=== PATIENT | female | born 2000 | race Caucasian/White ===

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

== ENCOUNTER 2020-10-13 15:34 | Emergency (ER) | payer BC ==
[2020-10-13 15:43] VITALS: RESP 18; TEMP 98.2
[2020-10-13] MEDS ORDERED: IBUPROFEN 600 MG TAB PO STA (16:14)
[2020-10-13 16:30] LABS: Amorphous Sediment,Urine Rare /hpf; Appearance,Urine Cloudy (Clear); Bacteria,Urine Rare /hpf; Bilirubin,Urine Negative (Negative); Blood,Urine Large (Negative); Color,Urine Yellow; Glucose,Urine (UA) Negative (Negative); Hyaline Casts,Urine 1 /lpf (0-2); Ketones,Urine Negative (Negative); Leukocyte Esterase,Urine Large (Negative); Mucus,Urine Few /hpf; Nitrite,Urine Negative (Negative); Protein,Urine Negative (Negative); RBC,Urine 6 /hpf (0-5); Specific Gravity,Urine 1.028 (1.001-1.035); Squamous Epithelial Cell,Urine 4 /hpf (0-4); WBC,Urine 42 /hpf (0-5)
--- NOTE | 2020-10-13 16:31 | ED ---
Abdominal Pain HPI - General Chief Complaint: Abdominal Pain Stated Complaint: Abd/Pelvic Pain Time Seen by Provider: 10/13/20 15:48 Source: patient, RN notes reviewed Mode of arrival: ambulatory Limitations: no limitations - History of Present Illness Initial Comments: 20-year-old female presents emergency Department chief complaint of left lower abdominal pain. Patient states has been off for last few days. Patient states that she is concerned about ovarian cyst. No dysuria no hematuria she states she just ended her mental cycle denies any chance . Patient states that she has no dysuria no hematuria denies any significant constipation or diarrhea no prior abdominal surgeries no chest pain or shortness breath no flank or back pain. - Related Data Home Medications Medication Instructions Recorded Confirmed Acetaminophen Tab [Tylenol Tab] 1,000 mg PO Q6HR PRN 10/13/20 10/13/20 Citalopram Hydrobromide [CeleXA] 40 mg PO DAILY 10/13/20 10/13/20 Previous Rx's Medication Instructions Recorded Cephalexin [Keflex] 500 mg PO Q8HR #21 cap 10/13/20 Allergies Allergy/AdvReac Type Severity Reaction Status Date / Time No Known Allergies Allergy Verified 10/13/20 16:33 Review of Systems ROS Statement: Those systems with pertinent positive or pertinent negative responses have been documented in the HPI. ROS Other: All systems not noted in ROS Statement are negative. Past Medical History Additional Past Medical History / Comment(s): hx of palpitations History of Any Multi-Drug Resistant Organisms: None Reported Past Surgical History: Ear Surgery Additional Past Surgical History / Comment(s): tubes in ears as infant Past Psychological History: Anxiety Past Alcohol Use History: None Reported Past Drug Use History: None Reported General Exam Limitations: no limitations General appearance: alert, in no apparent distress Head exam: Present: atraumatic, normocephalic, normal inspection Eye exam: Present: normal appearance, PERRL, EOMI. Absent: scleral icterus, conjunctival injection, periorbital swelling Respiratory exam: Present: normal lung sounds bilaterally. Absent: respiratory distress, wheezes, rales, rhonchi, stridor Cardiovascular Exam: Present: regular rate, normal rhythm, normal heart sounds. Absent: systolic murmur, diastolic murmur, rubs, gallop, clicks GI/Abdominal exam: Present: soft, tenderness (Minimal left lower quadrant), normal bowel sounds. Absent: distended, guarding, rebound, rigid Back exam: Absent: CVA tenderness (R), CVA tenderness (L) Neurological exam: Present: alert, oriented X3 Skin exam: Present: warm, dry, intact, normal color. Absent: rash Course Vital Signs 10/13/20 10/13/20 15:42 16:56 Temperature 98.2 F Pulse Rate 76 77 Respiratory 18 18 Rate Blood Pressure 138/83 105/72 O2 Sat by Pulse 98 99 Oximetry Medical Decision Making - Medical Decision Making Ultrasound was unremarkable., Urinalysis shows evidence urinary tract infection. Patient was started on oral antibiotics. Return parameters were discussed. - Lab Data Lab Results 10/13/20 10/13/20 Range/Units 16:23 16:23 Urine Color Yellow Urine Appearance Cloudy H (Clear) Urine pH 6.0 (5.0-8.0) Ur Specific [place] 1.028 (1.001-1.035) Urine Protein Negative (Negative) Urine Glucose (UA) Negative (Negative) Urine Ketones Negative (Negative) Urine Blood Large H (Negative) Urine Nitrite Negative (Negative) Urine Bilirubin Negative (Negative) Urine Urobilinogen 2.0 (<2.0) mg/dL Ur Leukocyte Esterase Large H (Negative) Urine RBC 6 H (0-5) /hpf Urine WBC 42 H (0-5) /hpf Ur Squamous Epith Cells 4 (0-4) /hpf Amorphous Sediment Rare H (None) /hpf Urine Bacteria Rare H (None) /hpf Hyaline Casts 1 (0-2) /lpf Urine Mucus Few H (None) /hpf Urine HCG, Qual Not Detected (Not Detectd) Disposition Clinical Impression: UTI (urinary tract infection) Disposition: HOME SELF-CARE Condition: Stable Instructions (If sedation given, give patient instructions): Urinary Tract Infection in Women (ED) Additional Instructions: Please return to the Emergency Department if symptoms worsen or any other concerns. Prescriptions: Cephalexin [Keflex] 500 mg PO Q8HR #21 cap Is patient prescribed a controlled substance at d/c from ED?: No Referrals: Alan Knapp DO [Primary Care Provider] - 1-2 days Time of Disposition: 17:03
--- NOTE | 2020-10-13 16:55 | US ---
EXAMINATION TYPE: US transvaginal DATE OF EXAM: 10/13/2020 COMPARISON: NONE CLINICAL HISTORY: pain. Left pelvic pain x couple days, irregular cycles for the past couple months, 0 TECHNIQUE: Transvaginal ER exam. Date of LMP: 10/09/2020 EXAM MEASUREMENTS: Uterus: 7.3 x 3.3 x 4.1 cm Endometrial Stripe: 0.3 cm Right Ovary: 4.4 x 3.1 x 2.2 cm Left Ovary: 3.1 x 2.3 x 3.1 cm 1. Uterus: anteverted 2. Endometrium: wnl 3. Right Ovary: multiple follicles 4. Left Ovary: multiple follicles Spectral, color and waveform doppler imaging shows good arterial and venous flow within the ovaries ; there is no evidence for ovarian torsion. 5. Bilateral Adnexa: wnl 6. Posterior cul-de-sac: wnl IMPRESSION: 1. Normal pelvic ultrasound
[2020-10-13 16:57] VITALS: BP 105/72; PULSE 77
== END 2020-10-13 17:27 | disposition home or self-care (01) ==
LOC: EC 15:34
DX: N39.0 Urinary tract infection, site not specified (principal); F41.9 Anxiety disorder, unspecified; Z79.899 Other long term (current) drug therapy
CPT/HCPCS: 76830; 81001; 81025; 87086; 93975; 99284

== ENCOUNTER → 2020-10-20 | Outpatient (CLI) | payer BC ==
--- NOTE | 2020-10-21 10:49 | XR ---
EXAMINATION TYPE: XR abdomen 2V DATE OF EXAM: 10/20/2020 COMPARISON: None INDICATION: Pain TECHNIQUE: 2 view abdomen supine view and upright view FINDINGS: There is a normal bowel gas pattern. Psoas margins are normal. No organomegaly is present. No air-fluid levels are evident. No suspicious air-fluid levels are present. No free air is present. IMPRESSION: 1. Unremarkable Abdomen
== END | disposition home or self-care (01) ==
LOC: RAD 16:33
PROVIDERS: ATTEND Nurse Practitioner Family
DX: R10.9 Unspecified abdominal pain (principal)
CPT/HCPCS: 74019

== ENCOUNTER 2021-05-18 14:25 | Emergency (ER) | payer BC ==
[2021-05-18 14:32] VITALS: BP 120/76; PULSE 92; RESP 18; TEMP 98.2
[2021-05-18] MEDS ORDERED: ACETAMINOPHEN TAB 500 MG TAB PO STA (15:23)
--- NOTE | 2021-05-18 15:27 | ED ---
Extremity Problem HPI - General Chief complaint: Extremity Problem,Nontraumatic Stated complaint: L Leg Swelling Time Seen by Provider: 05/18/21 14:42 Source: patient Mode of arrival: ambulatory Limitations: no limitations - History of Present Illness Initial comments: 21-year-old male presents to emergency department with a chief complaint left ankle swelling and pain. Patient reports about one week ago she woke up with left-sided ankle pain that seems to be exacerbated with inhalation. She denies any direct injuries. States now the pain has started to progress proximally towards the knee. She also reports calf tenderness is well-appearing reports unilateral leg swelling. Denies any chest pain shortness of breath. No history DVT or PE. She is currently on oral contraceptive. - Related Data Home Medications Medication Instructions Recorded Confirmed Acetaminophen Tab [Tylenol Tab] 1,000 mg PO Q6HR PRN 10/13/20 10/13/20 Citalopram Hydrobromide [CeleXA] 40 mg PO DAILY 10/13/20 10/13/20 Previous Rx's Medication Instructions Recorded Cephalexin [Keflex] 500 mg PO Q8HR #21 cap 10/13/20 Allergies Allergy/AdvReac Type Severity Reaction Status Date / Time No Known Allergies Allergy Verified 05/18/21 14:32 Review of Systems ROS Statement: Those systems with pertinent positive or pertinent negative responses have been documented in the HPI. ROS Other: All systems not noted in ROS Statement are negative. Past Medical History Additional Past Medical History / Comment(s): hx of palpitations History of Any Multi-Drug Resistant Organisms: None Reported Past Surgical History: Ear Surgery Additional Past Surgical History / Comment(s): tubes in ears as infant Past Psychological History: Anxiety, Depression Smoking Status: Never smoker Past Alcohol Use History: None Reported Past Drug Use History: None Reported General Exam Limitations: no limitations General appearance: alert, in no apparent distress, obese Head exam: Present: atraumatic, normocephalic, normal inspection Eye exam: Present: normal appearance, PERRL, EOMI Pupils: Present: normal accommodation ENT exam: Present: normal exam, normal oropharynx, mucous membranes moist Neck exam: Present: normal inspection, full ROM. Absent: tenderness, lymphadenopathy Respiratory exam: Present: normal lung sounds bilaterally. Absent: respiratory distress, wheezes, rales Cardiovascular Exam: Present: regular rate, normal rhythm, normal heart sounds. Absent: systolic murmur Extremities exam: Present: full ROM, tenderness (Left ankle tenderness), normal capillary refill, pedal edema (+1 nonpitting left lower extremity), joint swelling (Left ankle), calf tenderness, other (Palpable DP and PT bilaterally). Absent: normal inspection (Unilateral left leg swelling) Back exam: Present: normal inspection, full ROM. Absent: tenderness, CVA tenderness (R), CVA tenderness (L) Neurological exam: Present: alert, oriented X3 Psychiatric exam: Present: normal affect, normal mood Skin exam: Present: warm, dry, intact, normal color Course Vital Signs 05/18/21 14:29 Temperature 98.2 F Pulse Rate 92 Respiratory 18 Rate Blood Pressure 120/76 O2 Sat by Pulse 99 Oximetry Medical Decision Making - Medical Decision Making 21-year-old male presents to emergency department with a chief complaint left ankle swelling and pain. On physical examination, left ankle swelling with Tenderness. X-ray shows no acute findings of the left ankle but there is soft tissue swelling. Possible ligamentous injury. Ultrasound Doppler shows no signs of a DVT. Patient advised to follow-up with accreditation specialist. Strict return parameters were thoroughly discussed the patient is ascending agreeable. Case discussed with physician. Disposition Clinical Impression: Left ankle swelling Disposition: HOME SELF-CARE Condition: Stable Instructions (If sedation given, give patient instructions): Swollen Ankle Joint (ED) Additional Instructions: Please return to the Emergency Department if symptoms worsen or any other concerns. Follow with an accreditation specialist. Is patient prescribed a controlled substance at d/c from ED?: No Referrals: Gerardo Arevalo DO [Primary Care Provider] - 1-2 days Luigi Sarmiento DO [Doctor of Osteopathic Medicine] - 1-2 days Time of Disposition: 16:34
--- NOTE | 2021-05-18 15:58 | XR ---
EXAMINATION TYPE: XR ankle complete LT DATE OF EXAM: 05/18/2021 CLINICAL HISTORY: Ankle swelling TECHNIQUE: Frontal, lateral and oblique images of the left ankle are obtained. COMPARISON: None. FINDINGS: There is no acute fracture/dislocation evident in the left ankle. The ankle mortise appea rs within normal limits. Soft tissue swelling. IMPRESSION: There is no acute fracture or dislocation in the left ankle. Overlying soft tissue swell ing may represent underlying ligamentous injury.
--- NOTE | 2021-05-18 16:16 | US ---
EXAMINATION TYPE: US venous doppler duplex LE LT DATE OF EXAM: 05/18/2021 4:06 PM COMPARISON: NONE CLINICAL HISTORY: r/o dvt. 21 year old with left leg pain and swelling/ No known prior DVT SIDE PERFORMED: Left TECHNIQUE: The lower extremity deep venous system is examined utilizing real time linear array sonog renae with graded compression, doppler sonography and color-flow sonography. VESSELS IMAGED: Common Femoral Vein Deep Femoral Vein Greater Saphenous Vein * Femoral Vein Popliteal Vein Small Saphenous Vein * Proximal Calf Veins (* superficial vessels) Left Leg: Negative for DVT Grayscale, color doppler, spectral doppler imaging performed of the deep veins of the left lower extr emity. There is normal flow, compressibility, vascular waveforms. IMPRESSION: No ultrasound evidence for acute DVT in the left lower extremity.
== END 2021-05-18 16:37 | disposition home or self-care (01) ==
LOC: EC 14:25
DX: M79.89 Other specified soft tissue disorders (principal); F32.9 Major depressive disorder, single episode, unspecified
CPT/HCPCS: 99284

== ENCOUNTER 2021-07-14 08:26 | Emergency (ER) | payer BC ==
[2021-07-14 08:34] VITALS: RESP 18; TEMP 98.3
[2021-07-14] MEDS ORDERED: KETOROLAC 15 MG/ML 1 ML VIAL IVP STA (09:22)
--- NOTE | 2021-07-14 09:27 | ED ---
General Adult HPI - General Chief complaint: Abdominal Pain Stated complaint: left side abd pain Time Seen by Provider: 07/14/21 08:55 Source: patient, RN notes reviewed Mode of arrival: ambulatory Limitations: no limitations - History of Present Illness Initial comments: 21-year-old female presents to the emergency room for a chief complaint of abdominal pain. Patient states this morning she had a pressure in her lower abdomen. She thought she had to go to the bathroom but it did not help. Patient states it started on the left side been moving across to the right side. States it is also higher up on the left-sided in her back. Denies any upper right-sided abdominal pain. Denies nausea vomiting diarrhea. Denies fevers or chills.Patient has no other complaints at this time including shortness of breath, chest pain, abdominal pain, nausea or vomiting, headache, or visual changes. - Related Data Home Medications Medication Instructions Recorded Confirmed Citalopram Hydrobromide [CeleXA] 40 mg PO DAILY 10/13/20 07/14/21 Acetaminophen Tab [Tylenol] 975 mg PO Q4H PRN 07/14/21 07/14/21 Blisovi 1 tab PO DAILY 07/14/21 07/14/21 buPROPion XL [Wellbutrin XL] 300 mg PO DAILY 07/14/21 07/14/21 Previous Rx's Medication Instructions Recorded Dicyclomine [Bentyl] 20 mg PO TID PRN #20 tablet 07/14/21 Allergies Allergy/AdvReac Type Severity Reaction Status Date / Time No Known Allergies Allergy Verified 07/14/21 09:40 Review of Systems ROS Statement: Those systems with pertinent positive or pertinent negative responses have been documented in the HPI. ROS Other: All systems not noted in ROS Statement are negative. Past Medical History Additional Past Medical History / Comment(s): hx of palpitations History of Any Multi-Drug Resistant Organisms: None Reported Past Surgical History: Ear Surgery Additional Past Surgical History / Comment(s): tubes in ears as Past Psychological History: Anxiety, Depression Smoking Status: Never smoker Past Alcohol Use History: None Reported Past Drug Use History: None Reported General Exam Limitations: no limitations General appearance: alert, in no apparent distress Head exam: Present: atraumatic Eye exam: Present: normal appearance, PERRL, EOMI. Absent: scleral icterus, con junctival injection ENT exam: Present: normal exam, mucous membranes moist Neck exam: Present: normal inspection, full ROM. Absent: tenderness Respiratory exam: Present: normal lung sounds bilaterally. Absent: respiratory distress, wheezes Cardiovascular Exam: Present: regular rate, normal rhythm, normal heart sounds GI/Abdominal exam: Present: soft, tenderness (Tenderness in the left upper quadrant, no right upper quadrant tenderness, negative Muñoz sign), normal bow el sounds. Absent: distended Neurological exam: Present: alert Course Vital Signs 07/14/21 07/14/21 08:31 10:48 Temperature 98.3 F 98.3 F Pulse Rate 78 84 Respiratory 18 18 Rate Blood Pressure 117/73 116/79 O2 Sat by Pulse 97 100 Oximetry Medical Decision Making - Medical Decision Making Vitals are stable. CBC CMP unremarkable. Urinalysis is negative. HCG is negative. CT shows mild fluid distention of the small bowel which may reflect ileus. No evidence of obstruction. Patient was given pain medication and did have significant department. Can be discharged home to follow up with primary care. Start return parameters. - Lab Data Result diagrams: 07/14/21 09:29 07/14/21 09:29 Lab Results 07/14/21 07/14/21 07/14/21 Range/Units 09:08 09:08 09:29 WBC 8.1 (3.8-10.6) k/uL RBC 4.43 (3.80-5.40) m/uL Hgb 14.2 (11.4-16.0) gm/dL Hct 40.4 (34.0-46.0) % MCV 91.4 (80.0-100.0) fL MCH 32.1 (25.0-35.0) pg MCHC 35.1 (31.0-37.0) g/dL RDW 12.4 (11.5-15.5) % Plt Count 322 (150-450) k/uL MPV 7.3 Neutrophils % 60 % Lymphocytes % 30 % Monocytes % 5 % Eosinophils % 2 % Basophils % 1 % Neutrophils # 4.9 (1.3-7.7) k/uL Lymphocytes # 2.5 (1.0-4.8) k/uL Monocytes # 0.4 (0-1.0) k/uL Eosinophils # 0.1 (0-0.7) k/uL Basophils # 0.1 (0-0.2) k/uL Sodium (137-145) mmol/L Potassium (3.5-5.1) mmol/L Chloride (98-107) mmol/L Carbon Dioxide (22-30) mmol/L Anion Gap mmol/L BUN (7-17) mg/dL Creatinine (0.52-1.04) mg/dL Est GFR (CKD-EPI)AfAm (>60 ml/min/1.73 sqM) Est GFR (CKD-EPI)NonAf (>60 ml/min/1.73 sqM) Glucose (74-99) mg/dL Calcium (8.4-10.2) mg/dL Total Bilirubin (0.2-1.3) mg/dL AST (14-36) U/L ALT (4-34) U/L Alkaline Phosphatase (38-126) U/L Total Protein (6.3-8.2) g/dL Albumin (3.5-5.0) g/dL Lipase (23-300) U/L Urine Color Yellow Urine Appearance Cloudy H (Clear) Urine pH 5.5 (5.0-8.0) Ur Specific Oneill 1.025 (1.001-1.035) Urine Protein Negative (Negative) Urine Glucose (UA) Negative (Negative) Urine Ketones Negative (Negative) Urine Blood Negative (Negative) Urine Nitrite Negative (Negative) Urine Bilirubin Negative (Negative) Urine Urobilinogen <2.0 (<2.0) mg/dL Ur Leukocyte Esterase Large H (Negative) Urine RBC 2 (0-5) /hpf Urine WBC 4 (0-5) /hpf Ur Squamous Epith Cells 5 H (0-4) /hpf Urine HCG, Qual Not Detected (Not Detectd) 07/14/21 Range/Units 09:29 WBC (3.8-10.6) k/uL RBC (3.80-5.40) m/uL Hgb (11.4-16.0) gm/dL Hct (34.0-46.0) % MCV (80.0-100.0) fL MCH (25.0-35.0) pg MCHC (31.0-37.0) g/dL RDW (11.5-15.5) % Plt Count (150-450) k/uL MPV Neutrophils % % Lymphocytes % % Monocytes % % Eosinophils % % Basophils % % Neutrophils # (1.3-7.7) k/uL Lymphocytes # (1.0-4.8) k/uL Monocytes # (0-1.0) k/uL Eosinophils # (0-0.7) k/uL Basophils # (0-0.2) k/uL Sodium 138 (137-145) mmol/L Potassium 4.4 (3.5-5.1) mmol/L Chloride 108 H (98-107) mmol/L Carbon Dioxide 20 L (22-30) mmol/L Anion Gap 10 mmol/L BUN 13 (7-17) mg/dL Creatinine 0.70 (0.52-1.04) mg/dL Est GFR (CKD-EPI)AfAm >90 (>60 ml/min/1.73 sqM) Est GFR (CKD-EPI)NonAf >90 (>60 ml/min/1.73 sqM) Glucose 95 (74-99) mg/dL Calcium 9.5 (8.4-10.2) mg/dL Total Bilirubin 0.5 (0.2-1.3) mg/dL AST 29 (14-36) U/L ALT 20 (4-34) U/L Alkaline Phosphatase 57 (38-126) U/L Total Protein 7.3 (6.3-8.2) g/dL Albumin 4.4 (3.5-5.0) g/dL Lipase 68 (23-300) U/L Urine Color Urine Appearance (Clear) Urine pH (5.0-8.0) Ur Specific Oneill (1.001-1.035) Urine Protein (Negative) Urine Glucose (UA) (Negative) Urine Ketones (Negative) Urine Blood (Negative) Urine Nitrite (Negative) Urine Bilirubin (Negative) Urine Urobilinogen (<2.0) mg/dL Ur Leukocyte Esterase (Negative) Urine RBC (0-5) /hpf Urine WBC (0-5) /hpf Ur Squamous Epith Cells (0-4) /hpf Urine HCG, Qual (Not Detectd) Disposition Clinical Impression: Ileus, Abdominal pain Disposition: HOME SELF-CARE Condition: Good Instructions (If sedation given, give patient instructions): Abdominal Pain (ED) Additional Instructions: Please take Motrin and Tylenol for pain. Follow-up with your doctor in one to 2 days. Return to the emergency room for any worsening symptoms. Prescriptions: Dicyclomine [Bentyl] 20 mg PO TID PRN #20 tablet PRN Reason: abdominal pain Is patient prescribed a controlled substance at d/c from ED?: No Referrals: Gerardo Arevalo DO [Primary Care Provider] - 1-2 days Time of Disposition: 11:09
[2021-07-14 09:30] LABS: Appearance,Urine Cloudy (Clear); Bilirubin,Urine Negative (Negative); Blood,Urine Negative (Negative); Color,Urine Yellow; Glucose,Urine (UA) Negative (Negative); Ketones,Urine Negative (Negative); Leukocyte Esterase,Urine Large (Negative); Nitrite,Urine Negative (Negative); PH, Urine 5.5 (5.0-8.0); Protein,Urine Negative (Negative); RBC,Urine 2 /hpf (0-5); Specific Gravity,Urine 1.025 (1.001-1.035); Squamous Epithelial Cell,Urine 5 /hpf (0-4); Urobilinogen,Urine <2.0 mg/dL (<2.0); WBC,Urine 4 /hpf (0-5)
[2021-07-14 09:37] LABS: Basophils # (A) 0.1 k/uL (0-0.2); Basophils % (A) 1 %; Eosinophils # (A) 0.1 k/uL (0-0.7); Eosinophils % (A) 2 %; HCT 40.4 % (34.0-46.0); HGB 14.2 gm/dL (11.4-16.0); Lymphocytes # (A) 2.5 k/uL (1.0-4.8); Lymphocytes % (A) 30 %; MCH 32.1 pg (25.0-35.0); MCHC 35.1 g/dL (31.0-37.0); MCV 91.4 fL (80.0-100.0); Mean Platelet Volume 7.3; Monocytes # (A) 0.4 k/uL (0-1.0); Monocytes % (A) 5 %; Neutrophils # (A) 4.9 k/uL (1.3-7.7); Neutrophils % (A) 60 %; Platelet Count 322 k/uL (150-450); RBC 4.43 m/uL (3.80-5.40); RDW 12.4 % (11.5-15.5); WBC 8.1 k/uL (3.8-10.6)
[2021-07-14 09:59] LABS: ALT 20 U/L (4-34); AST 29 U/L (14-36); African American GFR (CKD) >90 (>60 ml/min/1.73 sqM); Albumin 4.4 g/dL (3.5-5.0); Alkaline Phosphatase 57 U/L (38-126); Anion Gap 10 mmol/L; Blood Urea Nitrogen 13 mg/dL (7-17); Calcium 9.5 mg/dL (8.4-10.2); Carbon Dioxide 20 mmol/L (22-30); Chloride 108 mmol/L (98-107); Glucose 95 mg/dL (74-99); Lipase 68 U/L (23-300); Non-African American GFR(CKD) >90 (>60 ml/min/1.73 sqM); Potassium 4.4 mmol/L (3.5-5.1); Sodium 138 mmol/L (137-145); Total Bilirubin 0.5 mg/dL (0.2-1.3); Total Protein 7.3 g/dL (6.3-8.2)
--- NOTE | 2021-07-14 10:17 | CT ---
EXAMINATION TYPE: CT abdomen pelvis w con DATE OF EXAM: 07/14/2021 COMPARISON: None HISTORY: Lt sided pain CT DLP: 2045.9 mGycm CONTRAST: CT scan of the abdomen and pelvis is performed without Oral Contrast and with IV Contrast, patient in jected with 100 mL of Isovue 300. FINDINGS: LUNG BASES-: No visible nodule. No infiltrate. LIVER/GB: No calcified gallstones. No space occupying hepatic lesion. Biliary tree is of normal ca liber. PANCREAS: No inflammation. No distinct mass. SPLEEN: No splenic enlargement. No lesion seen. ADRENALS: No nodule. No thickening. KIDNEYS/BLADDER: No hydronephrosis. No nephrolithiasis. No distinct renal mass. Urinary bladder g rossly unremarkable. BOWEL: Normal appendix. Mild fluid distended small bowel may reflect ileus. No evidence of bowel obst ruction. No free air or abscess. GENITAL ORGANS: No gross abnormality. LYMPH NODES: No greater than 1cm abdominal or pelvic lymph nodes are appreciated. AORTA: No significant abnormality. OSSEOUS STRUCTURES: No significant abnormality is seen. OTHER: No significant additional abnormality is seen. IMPRESSION: 1. Mild fluid distended small bowel may reflect ileus. No evidence of bowel obstruction.
[2021-07-14 10:50] VITALS: BP 116/79; PULSE 84
== END 2021-07-14 11:19 | disposition home or self-care (01) ==
LOC: EC 08:26
DX: K56.7 Ileus, unspecified (principal); F41.9 Anxiety disorder, unspecified; F32.9 Major depressive disorder, single episode, unspecified
CPT/HCPCS: 36415; 80053; 83690; 85025; 81001; 81025; 74177; 99284; 96374; J1885; Q9967

== ENCOUNTER → 2022-08-05 | Outpatient (CLI) | payer BC ==
--- NOTE | 2022-08-05 22:32 | MR ---
EXAMINATION TYPE: MR brain wo con DATE OF EXAM: 08/05/2022 COMPARISON: NONE at this institution. HISTORY: Possible Chiari malformation, dizziness, abnormal CT. TECHNIQUE: Multiplanar, multisequence imaging of the brain and brainstem is performed without IV cont rast. FINDINGS: Diffusion weighted images demonstrate no evidence of a recent infarct or other diffusion abnormality. There is no extraaxial fluid collection or significant white matter signal abnormality. The ventricu lar system and cisternal spaces are normal in size and appearance. The brain volume is age appropria te. Midline structures demonstrate normal morphology. The craniocervical junction appears within normal limits. Normal vascular flow voids are present. Incidental dominant right vertebral artery filling th e basilar artery. The visualized sinuses are clear and the globes are intact. IMPRESSION: No low-lying cerebellar tonsils into foramen magnum to suggest Chiari type I malformation . Unremarkable study.
== END | disposition home or self-care (01) ==
LOC: RADMRIMAIN 15:50
PROVIDERS: ATTEND Family Medicine
DX: Q07.00 Arnold-Chiari syndrome without spina bifida or hydrocephalus (principal)
CPT/HCPCS: 70551

== ENCOUNTER → 2023-06-23 | Outpatient (CLI) | payer OTHER ==
--- NOTE | 2023-06-23 10:57 | XR ---
EXAMINATION TYPE: XR foot complete RT DATE OF EXAM: 06/23/2023 10:13 AM INDICATION: Patient age:Female; 23 years old; Reason for study: S99.921A UNSPECIFIED INJURY OF RIGHT FOOT; [facility]. COMPARISON: Right foot radiograph 04/20/2012 TECHNIQUE: The right foot was examined in the AP, oblique, and lateral projections. FINDINGS: No evidence of any acute osseous pathology. No evidence of soft tissue swelling. Joints are preserve d. Incidental note is made of symphalangism of the fifth distal interphalangeal joint. IMPRESSION: No evidence of acute fracture.
== END | disposition home or self-care (01) ==
LOC: RADUSWWP 09:19
PROVIDERS: ATTEND Internal Medicine
DX: S99.921A Unspecified injury of right foot, initial encounter (principal)

== ENCOUNTER 2023-11-08 22:27 | Emergency (ER) | payer OTHER ==
--- NOTE | 2023-11-08 22:31 | ED ---
General Adult HPI - General Source: patient, RN notes reviewed Mode of arrival: ambulatory Limitations: no limitations <Singh Smiley - Last Filed: 11/08/23 22:30> - General Source: patient, RN notes reviewed Mode of arrival: ambulatory Limitations: no limitations <Patricia Garza - Last Filed: 11/09/23 04:33> - General Chief complaint: Neck Pain/Injury Stated complaint: neck pain follow up from urgent care Time Seen by Provider: 11/08/23 22:30 - History of Present Illness Initial comments: 23-year-old female presents emergency Department with chief complaint of neck pain. Patient states she cracked her neck and head pain she went to urgent care who then called her back stating that she had an abnormal x-ray. She states she has pain in his cervical spine. No other associated injuries (Singh Smiley) This is a 23-year-old female who presents to the emergency department for neck pain. Patient states that she was stretching and cracked her neck, and started to develop pain. She went to urgent care where she had x-rays taken. They called her afterwards and told her that the x-ray appeared abnormal and she should go to the emergency department for further evaluation. She does continue to have pain in the back of her neck. She has not taken anything for management of the pain. Denies any other injuries. (Patricia Garza) - Related Data Home Medications Medication Instructions Recorded Confirmed Citalopram Hydrobromide [CeleXA] 40 mg PO DAILY 10/13/20 07/14/21 Acetaminophen Tab [Tylenol] 975 mg PO Q4H PRN 07/14/21 07/14/21 Blisovi 1 tab PO DAILY 07/14/21 07/14/21 buPROPion XL [Wellbutrin XL] 300 mg PO DAILY 07/14/21 07/14/21 Previous Rx's Medication Instructions Recorded Dicyclomine [Bentyl] 20 mg PO TID PRN #20 tablet 07/14/21 Allergies Allergy/AdvReac Type Severity Reaction Status Date / Time No Known Allergies Allergy Verified 11/08/23 22:38 Review of Systems ROS Other: All systems not noted in ROS Statement are negative. <Singh Smiley - Last Filed: 11/08/23 22:30> ROS Other: All systems not noted in ROS Statement are negative. <Patricia Garza - Last Filed: 11/09/23 04:33> ROS Statement: Those systems with pertinent positive or pertinent negative responses have been documented in the HPI. Past Medical History Additional Past Medical History / Comment(s): hx of palpitations History of Any Multi-Drug Resistant Organisms: None Reported Past Surgical History: Ear Surgery Additional Past Surgical History / Comment(s): tubes in ears as infant Past Psychological History: Anxiety, Depression Smoking Status: Never smoker Past Alcohol Use History: None Reported Past Drug Use History: None Reported <Singh Smiley - Last Filed: 11/08/23 22:30> General Exam <Singh Smiley - Last Filed: 11/08/23 22:30> Limitations: no limitations General appearance: alert, in no apparent distress Head exam: Present: atraumatic, normocephalic, normal inspection Neck exam: Present: normal inspection, tenderness (Posterior cervical spine), full ROM Respiratory exam: Present: normal lung sounds bilaterally. Absent: respiratory distress, wheezes, rales, rhonchi, stridor Cardiovascular Exam: Present: regular rate, normal rhythm, normal heart sounds. Absent: systolic murmur, diastolic murmur, rubs, gallop, clicks Neurological exam: Present: alert, oriented X3, CN II-XII intact Psychiatric exam: Present: normal affect, normal mood Skin exam: Present: warm, dry, intact, normal color. Absent: rash <Patricia Garza - Last Filed: 11/09/23 04:33> - General Exam Comments Initial Comments: Visual Physical Exam Vital signs reviewed General: Well-appearing, nontoxic, no acute distress. Head: Normocephalic, atraumatic Eyes: PERRLA, EOMI ENT: Airway patent Chest: Nonlabored breathing Skin: No visual rash, normal skin tone Neuro: Alert and oriented 3 Musculoskeletal: No gross abnormalities (Singh Smiley) Course Vital Signs 11/08/23 22:37 Temperature 98.1 F Pulse Rate 81 Respiratory 18 Rate Blood Pressure 137/92 O2 Sat by Pulse 97 Oximetry Medical Decision Making <Singh Smiley - Last Filed: 11/08/23 22:30> - Radiology Data Radiology results: report reviewed, image reviewed <Patricia Garza - Last Filed: 11/09/23 04:33> - Medical Decision Making I completed the quick note portion of this chart signed Singh Smiley PA-C (Singh Smiley) This is a 23-year-old female who presents to the emergency department for neck pain. Was pt. sent in by a medical professional or institution? @ -Urgent care Did you speak to anyone other than the patient for history? @ -No Did you review nursing and triage notes? @ -Yes, and I agree, it is accurate with regards to the patient's symptoms. Were old charts reviewed? @ -No Differential Diagnosis? @ -Differential Neck Pain: Fracture, dislocation, contusion, strain, DDD, disc herniation, this is not meant to be an all-inclusive list. EKG interpreted by me (3pts min.)? @ -Not obtained X-rays interpreted by me (1pt min.)? @ -Not obtained CT interpreted by me (1pt min.)? @ -CT scan of the cervical spine obtained. My interpretation identifies no acute fractures. U/S interpreted by me (1pt. min.)? @ -Not obtained What testing was considered but not performed? (CT, X-rays, U/S, labs)? Why? @ -None What meds were considered but not given? Why? @ -None Did you discuss the management of the patient with other professionals? @ -No Did you reconcile home meds? @ -No Was smoking cessation discussed for >3mins.? @ -No Was critical care preformed (if so, how long)? @ -No Were there social determinants of health that impacted care today? How? (Homelessness, low income, unemployed, alcoholism, drug addiction, transportation, low edu. Level, literacy, decrease access to med. care, shelter, rehab)? @ -No Was there de-escalation of care discussed even if they declined? (Discuss DNR or withdrawal of care, Hospice)? @ -No What co-morbidities impacted this encounter? (DM, HTN, Smoking, COPD, CAD, Cancer, CVA, Hep., AIDS, mental health diagnosis, sleep apnea, morbid obesity)? @ -None Was patient admitted / discharged? @ -Discharged. Computed tomography scan of the cervical spine obtained revealing no acute process. Advised ibuprofen and Tylenol as needed for pain relief. Patient discharged home in stable condition. Undiagnosed new problem with uncertain prognosis? @ -None Drug Therapy requiring intensive monitoring for toxicity (Heparin, Nitro, Insulin, Cardizem)? @ -None Were any procedures done? @ -None Diagnosis/symptom? @ -Cervical strain Acute, or Chronic, or Acute on Chronic? @ -Acute Uncomplicated (without systemic symptoms) or Complicated (systemic symptoms)? @ -Uncomplicated Side effects of treatment? @ -None Exacerbation, Progression, or Severe Exacerbation] @ -Not applicable Poses a threat to life or bodily function? @ -No Return precautions reviewed in depth, the patient is instructed to return to the emergency department with any new, worsening, or concerning symptoms. Patient verbalized understanding. This case was discussed in detail with the attending ED physician, Dr. Mora. Presentation, findings, and treatment plan discussed in detail as well. (Patricia Garza) Disposition <Singh Smiley - Last Filed: 11/08/23 22:30> Is patient prescribed a controlled substance at d/c from ED?: No <Patricia Garza - Last Filed: 11/09/23 04:33> Clinical Impression: Strain of neck muscle Disposition: HOME SELF-CARE Instructions (If sedation given, give patient instructions): Cervical Strain (ED) Additional Instructions: Return to the emergency department with any new, worsening, or concerning symptoms. Alternate with ibuprofen and Tylenol as needed for pain relief. Follow up with your primary care provider in 1-2 days. Referrals: Janie Velazquez MD [Primary Care Provider] - 1-2 days
[2023-11-08 22:51] VITALS: BP 137/92; PULSE 81; RESP 18; TEMP 98.1
--- NOTE | 2023-11-09 00:34 | CT ---
EXAM: CT Cervical Spine Without Intravenous Contrast CLINICAL HISTORY: ITS.REASON CT Reason: pain TECHNIQUE: Axial computed tomography images of the cervical spine without intravenous contrast. CTDI is 26.1 mGy and DLP is 812 mGy-cm. This CT exam was performed using one or more of the following dose reduction techniques: automated exposure control, adjustment of the mA and/or kV according to patient size, and/or use of iterative reconstruction technique. COMPARISON: No relevant prior studies available. FINDINGS: The vertebral body heights are maintained. The craniocervical junction is intact. The atlanto-dens interval is maintained. The dens is intact. There is no spondylolisthesis. The intervertebral disc spaces are preserved. There is no spinal canal or neural foraminal stenosis. The unenhanced neck soft tissues are grossly unremarkable. The visualized lung apices are grossly clear. IMPRESSION: No acute fracture or subluxation of the cervical spine.
== END 2023-11-09 01:45 | disposition home or self-care (01) ==
LOC: EC 22:27
DX: S16.1XXA Strain of muscle, fascia and tendon at neck level, initial encounter (principal); F32.A Depression, unspecified; F41.9 Anxiety disorder, unspecified; Z79.899 Other long term (current) drug therapy; X58.XXXA Exposure to other specified factors, initial encounter
CPT/HCPCS: 72125; 99283

== ENCOUNTER → 2024-02-02 | Outpatient (CLI) | payer OTHER ==
--- NOTE | 2024-02-02 10:01 | US ---
EXAMINATION TYPE: US renal artery duplex complet DATE OF EXAM: 02/02/2024 COMPARISON: NONE CLINICAL INDICATION: Female, 24 years old with history of I99.8 FLUCTUATING BLOOD PRESSURE; Uncontrol led blood pressure x 2 months - has not started medications MEASUREMENTS: RENAL SIZE: Right Kidney: 11.5 x 4.4 x 5.3 cm Left Kidney: 11.1 x 5.0 x 5.6 Right Kidney: wnl Left Kidney: wnl Abd Aorta: No AAA visualized RESISTANCE INDEX Right: 0.82 Left: 0.86 RA/AO RATIO (< 3.5 ) Right: 0.4 Left: 1.0 RENAL ARTERY VELOCITY ( < 180 cm/s) Right: 46 Left: 124 Editor Department Notes: ? Tortuous left renal artery; Difficult exam due to overlying bowel gas; Potentia l Inaccurate proximal renal artery measurements. IMPRESSION: Limited exam with out evidence for renal artery stenosis.
== END | disposition home or self-care (01) ==
LOC: RADUSWWP 07:19
PROVIDERS: ATTEND Family Medicine
DX: I99.8 Other disorder of circulatory system (principal)
CPT/HCPCS: 93975

== ENCOUNTER 2025-02-28 13:35 | Outpatient (CLI) | payer OTHER ==
[2025-02-28 14:36] VITALS: BP 110/55; PULSE 84; RESP 20; TEMP 96.4
--- NOTE | 2025-04-29 10:31 | P.MSEPDOC ---
Presenting Problems - Arrival Data Date of Arrival on Unit: 02/28/25 Time of Arrival on Unit: 13:30 Mode of Transport: Ambulatory - Complaint OB-Reason for Admission/Chief Complaint: Rule Out SROM, Pain Comment: c/o cramping and possible SROM starting around 1130 today, clear fluid per pt. Medical History - Information : 1 Para: 0 Term: 0 : 0 Abortions: Spontaneous or Elective: 0 Number of Living Children: 0 - Gestational Age Gestational Age by CHIDI (wks/days): 25 Weeks and 3 Days Review of Systems - Review of Systems Constitutional: No problems Breast: No problems ENT: No problems Cardiovascular: No problems Respiratory: No problems Gastrointestinal: No problems Genitourinary: No problems Musculoskeletal: No problems Neurological: No problems Skin: No problems Vital Signs - Temperature Temperature: 96.4 F Temperature Source: Temporal Artery Scan - Pulse Pulse Oximetery Pulse Rate: 84 Pulse Assessment Method: Pulse Oximetry - Respirations Respiratory Rate: 20 Oxygen Delivery Method: Room Air O2 Sat by Pulse Oximetry: 98 - Blood Pressure Right Arm Blood Pressure: 110/55 Blood Pressure Mean: 73 Blood Pressure Source: Automatic Cuff Medical Screen Scoring - Uterine Contractions Resting: Soft to palpation Physician Notification - Physician Notified Physician Notified Date: 02/28/25 Physician Notified Time: 13:58 Physician: Nikki Lyn New Order Received: Yes (Discharge home with follow up instructions.) Maternal Triage Index - Maternal Triage Index Presenting for scheduled procedure w/no complaint: No - Stat/Priority 1 Stat Priority 1: No - Urgent/Priority 2 Urgent Priority 2: Yes Provider Notified: Nikki Lyn Provider Notified Time: 13:58 Criteria Met for Priority 2: C/o cramping and leaking "clear fluid" starting around 1130 this morning. Disposition - Disposition OB Disposition: Discharge to home Discharge Date: 02/28/25 Discharge Time: 14:10 I agree with the RN Medical Screening Exam: Yes Case reviewed; plan agreed upon as documented in EMR&OBIX.: Yes Diagnosis: FALSE LABOR BEFORE 37 COMPLETED WEEKS OF GEST, SECOND TRI
== END 2025-02-28 14:10 | disposition home or self-care (01) ==
LOC: FBPOP 13:35
PROVIDERS: ATTEND Obstetrics & Gynecology
DX: Z53.9 Procedure and treatment not carried out, unspecified reason (principal)
CPT/HCPCS: 84112; G0463; 99213

== ENCOUNTER 2025-03-11 00:30 | Outpatient (CLI) | payer OTHER ==
[2025-03-11 01:14] VITALS: BP 122/79; PULSE 90; RESP 16; TEMP 97.4
--- NOTE | 2025-03-30 11:14 | P.MSEPDOC ---
Presenting Problems - Arrival Data Date of Arrival on Unit: 03/11/25 Time of Arrival on Unit: 00:30 Mode of Transport: Ambulatory - Complaint OB-Reason for Admission/Chief Complaint: Vaginal Bleeding Medical History - Information : 1 Para: 0 Term: 0 : 0 Abortions: Spontaneous or Elective: 0 Number of Living Children: 0 - Gestational Age Gestational Age by CHIDI (wks/days): 27 Weeks and 0 Days Review of Systems - Review of Systems Constitutional: No problems Breast: No problems ENT: No problems Cardiovascular: No problems Respiratory: No problems Gastrointestinal: No problems Genitourinary: No problems Musculoskeletal: No problems Neurological: No problems Skin: No problems Vital Signs - Temperature Temperature: 97.4 F Temperature Source: Temporal Artery Scan - Pulse Pulse Oximetery Pulse Rate: 90 Pulse Assessment Method: Pulse Oximetry - Respirations Respiratory Rate: 16 Oxygen Delivery Method: Room Air O2 Sat by Pulse Oximetry: 98 - Blood Pressure Right Arm Blood Pressure: 122/79 Blood Pressure Mean: 93 Blood Pressure Source: Automatic Cuff Medical Screen Scoring - Uterine Contractions Intensity: Absent Resting: Soft to palpation - Assessment - Baby A Baseline FHR: 125 Heart Rate - NICHD Category: Category I (Normal) Physician Notification - Physician Notified Physician Notified Date: 03/11/25 Physician Notified Time: 00:59 Physician: Tray Smith Order Received: Yes - Notification Comment Comment: Dr. Smith called at home, notified of pt c/o spotting immediately after intercourse, GA, G/P, VS WNL, CAT 1 FHT, no contractions, abdomen soft, no active bleeding per external exam. Orders to discharge home. Maternal Triage Index - Maternal Triage Index Presenting for scheduled procedure w/no complaint: No - Stat/Priority 1 Stat Priority 1: No - Urgent/Priority 2 Urgent Priority 2: No - Prompt/Priority 3 Prompt Priority 3: No - Non-Urgent/Priority 4 Non-Urgent Priority 4: Yes Criteria Met for Priority 4: vaginal spotting Disposition - Disposition OB Disposition: Discharge to home Discharge Date: 03/11/25 Discharge Time: 01:05 I agree with the RN Medical Screening Exam: Yes Physician's MSE Comment: I have neither seen nor examined the patient. Case reviewed; plan agreed upon as documented in EMR&OBIX.: Yes Diagnosis: RELATED CONDITIONS, UNSPECIFIED, SECOND TRIMESTER
== END 2025-03-11 01:05 | disposition home or self-care (01) ==
LOC: FBPOP 00:30
PROVIDERS: ATTEND Obstetrics & Gynecology
DX: O26.892 Other specified pregnancy related conditions, second trimester (principal); Z91.030 Bee allergy status; Z91.018 Allergy to other foods; Z88.8 Allergy status to other drugs, medicaments and biological substances; Z3A.27 27 weeks gestation of pregnancy
CPT/HCPCS: 99213

== ENCOUNTER 2025-03-26 08:46 | Outpatient (CLI) | payer OTHER ==
[2025-03-26 09:18] VITALS: BP 110/60; PULSE 82; RESP 16; TEMP 97.1
--- NOTE | 2025-04-04 10:16 | P.MSEPDOC ---
Presenting Problems - Arrival Data Date of Arrival on Unit: 03/26/25 Time of Arrival on Unit: 08:46 Mode of Transport: Ambulatory - Complaint OB-Reason for Admission/Chief Complaint: Possible Onset of Labor Comment: cramping and diarrhea x 2 days Medical History - Information : 1 Para: 0 Term: 0 : 0 Abortions: Spontaneous or Elective: 0 Number of Living Children: 0 - Gestational Age Gestational Age by CHIDI (wks/days): 29 Weeks and 1 Days Review of Systems - Review of Systems Constitutional: No problems Breast: No problems ENT: No problems Cardiovascular: No problems Respiratory: No problems Gastrointestinal: Diarrhea Genitourinary: No problems Musculoskeletal: No problems Neurological: No problems Skin: No problems Vital Signs - Temperature Temperature: 97.1 F Temperature Source: Temporal Artery Scan - Pulse Right Brachial Pulse Rate: 82 Pulse Assessment Method: Automatic Cuff - Respirations Respiratory Rate: 16 Oxygen Delivery Method: Room Air O2 Sat by Pulse Oximetry: 97 - Blood Pressure Right Arm Sitting Blood Pressure: 110/60 Blood Pressure Mean: 76 Blood Pressure Source: Automatic Cuff Medical Screen Scoring - Cervical Exam Dilation (cm): 0 Effacement (%): 0 Station: -3 Membranes: Intact - Uterine Contractions Frequency From (mins): 0 Frequency To (mins): 0 Duration From (seconds): 0 Duration To (seconds): 0 - Assessment - Baby A Baseline FHR: 120 Heart Rate - NICHD Category: Category I (Normal) NST: Reactive Physician Notification - Physician Notified Physician Notified Date: 03/26/25 Physician Notified Time: 09:20 Physician: Yesica Morales New Order Received: Yes - Notification Comment Comment: orders check cervix before dc Maternal Triage Index - Maternal Triage Index Presenting for scheduled procedure w/no complaint: No - Stat/Priority 1 Stat Priority 1: No - Urgent/Priority 2 Urgent Priority 2: Yes Provider Notified: Yesica Morales Provider Notified Time: 09:20 Criteria Met for Priority 2: 29.1 cramping Disposition - Disposition OB Disposition: Triage, Discharge to home, Written follow up instructions reviewed Discharge Date: 03/26/25 Discharge Time: 09:35 I agree with the RN Medical Screening Exam: Yes Case reviewed; plan agreed upon as documented in EMR&OBIX.: Yes Diagnosis: RELATED CONDITIONS, UNSPECIFIED, SECOND TRIMESTER
== END 2025-03-26 09:35 | disposition home or self-care (01) ==
LOC: FBPOP 08:46
PROVIDERS: ATTEND Obstetrics & Gynecology Obstetrics
DX: O26.893 Other specified pregnancy related conditions, third trimester (principal); Z3A.29 29 weeks gestation of pregnancy; Z91.030 Bee allergy status; Z88.8 Allergy status to other drugs, medicaments and biological substances; Z91.048 Other nonmedicinal substance allergy status; Z91.018 Allergy to other foods
CPT/HCPCS: 59025; G0463; 99213

== ENCOUNTER 2025-04-23 14:46 | Outpatient (CLI) | payer OTHER ==
[2025-04-23 15:14] LABS: Appearance,Urine Clear (Clear); Bacteria,Urine Rare /hpf; Bilirubin,Urine Negative (Negative); Blood,Urine Negative (Negative); Color,Urine Yellow; Glucose,Urine (UA) Negative (Negative); Ketones,Urine Negative (Negative); Leukocyte Esterase,Urine Large (Negative); Mucus,Urine Occasional /hpf; Nitrite,Urine Negative (Negative); Protein,Urine Negative (Negative); RBC,Urine 1 /hpf (0-5); Specific Gravity,Urine 1.024 (1.001-1.035); Squamous Epithelial Cell,Urine 5 /hpf (0-4); Urobilinogen,Urine <2.0 mg/dL (<2.0); WBC,Urine 4 /hpf (0-5)
[2025-04-23 16:30] VITALS: BP 110/68; PULSE 96; RESP 15; TEMP 97.1
--- NOTE | 2025-05-17 11:23 | P.MSEPDOC ---
Presenting Problems - Arrival Data Date of Arrival on Unit: 04/23/25 Time of Arrival on Unit: 14:46 Mode of Transport: Ambulatory - Complaint OB-Reason for Admission/Chief Complaint: Visual Disturbances, Dizziness Medical History - Information : 1 Para: 0 - Gestational Age Gestational Age by CHIDI (wks/days): 33 Weeks and 1 Days Review of Systems - Review of Systems Constitutional: No problems Breast: No problems ENT: No problems Cardiovascular: No problems Respiratory: No problems Gastrointestinal: No problems Genitourinary: No problems Musculoskeletal: No problems Neurological: No problems Skin: No problems Vital Signs - Temperature Temperature: 97.1 F Temperature Source: Temporal Artery Scan - Pulse Pulse Oximetery Pulse Rate: 96 Pulse Assessment Method: Pulse Oximetry - Respirations Respiratory Rate: 15 O2 Sat by Pulse Oximetry: 97 - Blood Pressure Right Arm Sitting Blood Pressure: 110/68 Blood Pressure Mean: 82 Blood Pressure Source: Automatic Cuff Medical Screen Scoring - Assessment - Baby A Baseline FHR: 125 Heart Rate - NICHD Category: Category I (Normal) NST: Reactive Physician Notification - Physician Notified Physician Notified Date: 04/23/25 Physician Notified Time: 15:40 Physician: Tray Smith Order Received: Yes Disposition - Disposition OB Disposition: Triage, Discharge to home, Written follow up instructions reviewed Discharge Date: 04/23/25 Discharge Time: 15:45 I agree with the RN Medical Screening Exam: Yes Physician's MSE Comment: I have neither seen nor examined the patient. Case reviewed; plan agreed upon as documented in EMR&OBIX.: Yes Diagnosis: RELATED CONDITIONS, UNSPECIFIED, THIRD TRIMESTER
== END 2025-04-23 15:45 | disposition home or self-care (01) ==
LOC: FBPOP 14:46
PROVIDERS: ATTEND Obstetrics & Gynecology
DX: O26.893 Other specified pregnancy related conditions, third trimester (principal); H53.9 Unspecified visual disturbance; R42 Dizziness and giddiness; Z3A.33 33 weeks gestation of pregnancy; Z91.030 Bee allergy status; Z88.8 Allergy status to other drugs, medicaments and biological substances
CPT/HCPCS: 59025; 81001; G0463; 99213

== ENCOUNTER 2025-05-09 21:40 | Outpatient (CLI) | payer OTHER ==
[2025-05-09 23:20] VITALS: BP 128/61; PULSE 92; RESP 16; TEMP 98
--- NOTE | 2025-05-17 11:45 | P.MSEPDOC ---
Presenting Problems - Arrival Data Date of Arrival on Unit: 05/09/25 Time of Arrival on Unit: 21:41 Mode of Transport: Wheelchair - Complaint OB-Reason for Admission/Chief Complaint: Possible Onset of Labor Medical History - Information : 1 Para: 0 Term: 0 : 0 Abortions: Spontaneous or Elective: 0 Number of Living Children: 0 - Gestational Age Gestational Age by CHIDI (wks/days): 35 Weeks and 4 Days Review of Systems - Review of Systems Constitutional: No problems Breast: No problems ENT: No problems Cardiovascular: No problems Respiratory: No problems Gastrointestinal: No problems Genitourinary: No problems Musculoskeletal: No problems Neurological: No problems Skin: No problems Vital Signs - Temperature Temperature: 98.0 F Temperature Source: Oral - Pulse Right Brachial Pulse Rate: 92 Pulse Assessment Method: Automatic Cuff - Respirations Respiratory Rate: 16 Oxygen Delivery Method: Room Air O2 Sat by Pulse Oximetry: 97 - Blood Pressure Right Arm Blood Pressure: 128/61 Blood Pressure Mean: 83 Blood Pressure Source: Automatic Cuff Medical Screen Scoring - Cervical Exam Dilation (cm): 2 Effacement (%): 50 Station: -2 Membranes: Intact - Uterine Contractions Resting: Soft to palpation - Assessment - Baby A Baseline FHR: 120 Heart Rate - NICHD Category: Category I (Normal) NST: Reactive Physician Notification - Physician Notified Physician Notified Date: 05/09/25 Physician Notified Time: 22:56 Physician: Tray Smith Order Received: Yes - Notification Comment Comment: report given on patient that presents for contractions. Patient has had a few contractions over the last hour, cervical exam 2/50/-2 and remains the same after 1 hour, cat 1 heart tones, vitals reviewed. Patient to be discharged home. Maternal Triage Index - Stat/Priority 1 Stat Priority 1: No - Urgent/Priority 2 Urgent Priority 2: No - Prompt/Priority 3 Prompt Priority 3: Yes Criteria Met for Priority 3: 35 4/7 contractions Disposition - Disposition OB Disposition: Discharge to home Discharge Date: 05/09/25 Discharge Time: 23:00 I agree with the RN Medical Screening Exam: Yes Physician's MSE Comment: I have neither seen nor examined the patient. Case reviewed; plan agreed upon as documented in EMR&OBIX.: Yes Diagnosis: RELATED CONDITIONS, UNSPECIFIED, THIRD TRIMESTER
== END 2025-05-09 23:00 ==
LOC: FBPOP 21:40
PROVIDERS: ATTEND Obstetrics & Gynecology
DX: O26.893 Other specified pregnancy related conditions, third trimester (principal); Z3A.35 35 weeks gestation of pregnancy; Z91.030 Bee allergy status; Z91.018 Allergy to other foods; Z88.8 Allergy status to other drugs, medicaments and biological substances
CPT/HCPCS: 59025; G0463; 99213

== ENCOUNTER 2025-05-12 00:52 | Outpatient (CLI) | payer OTHER ==
[2025-05-13 02:46] VITALS: BP 114/56; PULSE 80; RESP 16; TEMP 98.1
--- NOTE | 2025-07-05 09:41 | P.MSEPDOC ---
Presenting Problems - Arrival Data Date of Arrival on Unit: 05/12/25 Time of Arrival on Unit: 00:52 Mode of Transport: Ambulatory - Complaint OB-Reason for Admission/Chief Complaint: Possible Onset of Labor Comment: contractions for the past few days Medical History - Information : 1 Para: 0 Term: 0 : 0 Abortions: Spontaneous or Elective: 0 Number of Living Children: 0 - Gestational Age Gestational Age by CHIDI (wks/days): 35 Weeks and 6 Days Review of Systems - Review of Systems Constitutional: No problems Breast: No problems ENT: No problems Cardiovascular: No problems Respiratory: No problems Gastrointestinal: No problems Genitourinary: No problems Musculoskeletal: No problems Neurological: No problems Skin: No problems Vital Signs - Temperature Temperature: 98.1 F Temperature Source: Oral - Pulse Right Sitting Pulse Rate: 80 Pulse Assessment Method: Automatic Cuff - Respirations Respiratory Rate: 16 Oxygen Delivery Method: Room Air - Blood Pressure Right Arm Sitting Blood Pressure: 114/56 Blood Pressure Mean: 75 Blood Pressure Source: Automatic Cuff Medical Screen Scoring - Cervical Exam Dilation (cm): 2 Effacement (%): 50 Station: -3 Membranes: Intact - Uterine Contractions Intensity: Mild - Assessment - Baby A Baseline FHR: 125 Heart Rate - NICHD Category: Category I (Normal) NST: Reactive Physician Notification - Physician Notified Physician Notified Date: 05/12/25 Physician Notified Time: 01:42 Physician: Dr Morales New Order Received: Yes (d/c home) - Notification Comment Comment: NST reactive, category 1 heart tones, no cervical change since last traige visit Maternal Triage Index - Maternal Triage Index Presenting for scheduled procedure w/no complaint: No - Stat/Priority 1 Stat Priority 1: No - Urgent/Priority 2 Urgent Priority 2: No - Prompt/Priority 3 Prompt Priority 3: No - Non-Urgent/Priority 4 Non-Urgent Priority 4: Yes Criteria Met for Priority 4: ángel for a few days, no cervical change since 05/09(last triage visit). Disposition - Disposition OB Disposition: Discharge to home, Written follow up instructions reviewed Discharge Date: 05/12/25 Discharge Time: 01:45 I agree with the RN Medical Screening Exam: Yes Case reviewed; plan agreed upon as documented in EMR&OBIX.: Yes Diagnosis: FALSE LABOR BEFORE 37 COMPLETED WEEKS OF GEST, THIRD TRI
== END 2025-05-12 01:45 | disposition home or self-care (01) ==
LOC: FBPOP 00:52
PROVIDERS: ATTEND Obstetrics & Gynecology Obstetrics
DX: O47.03 False labor before 37 completed weeks of gestation, third trimester (principal); Z3A.35 35 weeks gestation of pregnancy; Z91.030 Bee allergy status; Z91.018 Allergy to other foods; Z88.8 Allergy status to other drugs, medicaments and biological substances
CPT/HCPCS: 59025; G0463; 99213

== ENCOUNTER 2025-05-16 | Outpatient (CLI) | payer OTHER ==
[2025-05-16 01:31] LABS: Bacteria,Urine Rare /hpf; Bilirubin,Urine Negative (Negative); Blood,Urine Negative (Negative); Color,Urine Light Yellow; Glucose,Urine (UA) Negative (Negative); Ketones,Urine Negative (Negative); Leukocyte Esterase,Urine Small (Negative); Mucus,Urine Rare /hpf; Nitrite,Urine Negative (Negative); PH, Urine 6.0 (5.0-8.0); Protein,Urine Negative (Negative); RBC,Urine <1 /hpf (0-5); Specific Gravity,Urine 1.018 (1.001-1.035); Squamous Epithelial Cell,Urine <1 /hpf (0-4); Urobilinogen,Urine <2.0 mg/dL (<2.0); WBC,Urine 1 /hpf (0-5)
[2025-05-16 01:48] VITALS: BP 121/58; PULSE 74
--- NOTE | 2025-05-24 13:39 | P.MSEPDOC ---
Presenting Problems - Arrival Data Date of Arrival on Unit: 05/16/25 Time of Arrival on Unit: 00:00 Mode of Transport: Ambulatory - Complaint OB-Reason for Admission/Chief Complaint: Possible Onset of Labor Comment: Pt states she had cramping throughout the day, unsure if cramping/cx now but mostly c/o pelvic pressure and back pain intermittently. States Pain started after her appointment at [facility] today Medical History - Information : 1 Para: 0 Term: 0 : 0 Abortions: Spontaneous or Elective: 0 Number of Living Children: 0 - Gestational Age Gestational Age by CHIDI (wks/days): 36 Weeks and 3 Days Review of Systems - Review of Systems Constitutional: No problems Breast: No problems ENT: No problems Cardiovascular: No problems Respiratory: No problems Gastrointestinal: No problems Genitourinary: No problems Musculoskeletal: No problems Neurological: No problems Skin: No problems Vital Signs - Pulse Pulse Oximetery Pulse Rate: 74 Pulse Assessment Method: Automatic Cuff - Blood Pressure Right Arm Blood Pressure: 121/58 Blood Pressure Mean: 79 Blood Pressure Source: Automatic Cuff Medical Screen Scoring - Cervical Exam Dilation (cm): 3 Effacement (%): 70 Station: -2 Membranes: Intact - Uterine Contractions Intensity: Mild Resting: Soft to palpation - Assessment - Baby A Baseline FHR: 125 Heart Rate - NICHD Category: Category I (Normal) NST: Reactive Physician Notification - Physician Notified Physician Notified Date: 05/16/25 Physician Notified Time: 01:33 Physician: Mitra Grace - Notification Comment Comment: Spoke with Dr. rGace. 36 and 3, pt of hers. Presents with pelvic pressure, cramping, and back pain since this afternoon. States she had apt today and was 3/70. SVE the same and repeat 1 hour later is the same. NST reactive CAT 1, cx irregular, pt breathes through some occasionally. UA results discussed due to back pain. UA negative. Order to d/c home Maternal Triage Index - Maternal Triage Index Presenting for scheduled procedure w/no complaint: No - Stat/Priority 1 Stat Priority 1: No - Urgent/Priority 2 Urgent Priority 2: No - Prompt/Priority 3 Prompt Priority 3: Yes Criteria Met for Priority 3: Pt states she had cramping throughout the day, unsure if cramping/cx now but mostly c/o pelvic pressure and back pain intermittently. States Pain started after her appointment at [facility] today Disposition - Disposition OB Disposition: Discharge to home Discharge Date: 05/16/25 Discharge Time: 01:40 I agree with the RN Medical Screening Exam: Yes Physician's MSE Comment: I have neither seen nor examined the patient Case reviewed; plan agreed upon as documented in EMR&OBIX.: Yes Diagnosis: FALSE LABOR, UNSPECIFIED
== END 2025-05-16 01:40 | disposition home or self-care (01) ==
LOC: FBPOP
PROVIDERS: ATTEND Obstetrics & Gynecology
DX: O47.03 False labor before 37 completed weeks of gestation, third trimester (principal); Z3A.36 36 weeks gestation of pregnancy; Z91.030 Bee allergy status; Z88.8 Allergy status to other drugs, medicaments and biological substances; Z91.018 Allergy to other foods
CPT/HCPCS: 59025; 84112; 81001; G0463; 99213

== ENCOUNTER 2025-05-19 00:32 | Outpatient (CLI) | payer OTHER ==
[2025-05-19 02:21] VITALS: BP 123/57; PULSE 92; RESP 18; TEMP 96.2
--- NOTE | 2025-06-09 09:21 | P.MSEPDOC ---
Presenting Problems - Arrival Data Date of Arrival on Unit: 05/19/25 Time of Arrival on Unit: 00:32 Mode of Transport: Wheelchair - Complaint OB-Reason for Admission/Chief Complaint: Possible Onset of Labor Comment: Pt came in with complaints of ctx 3-5 minutes apart Medical History - Information : 1 Para: 0 Term: 0 : 0 Abortions: Spontaneous or Elective: 0 Number of Living Children: 0 - Gestational Age Gestational Age by CHIDI (wks/days): 36 Weeks and 6 Days Review of Systems - Review of Systems Constitutional: No problems Breast: No problems ENT: No problems Cardiovascular: No problems Respiratory: No problems Gastrointestinal: No problems Genitourinary: No problems Musculoskeletal: No problems Neurological: No problems Skin: No problems Vital Signs - Temperature Temperature: 96.2 F Temperature Source: Temporal Artery Scan - Pulse Pulse Oximetery Pulse Rate: 92 Pulse Assessment Method: Pulse Oximetry - Respirations Respiratory Rate: 18 Oxygen Delivery Method: Room Air O2 Sat by Pulse Oximetry: 99 - Blood Pressure Right Arm Blood Pressure: 123/57 Blood Pressure Mean: 79 Blood Pressure Source: Automatic Cuff Medical Screen Scoring - Cervical Exam Dilation (cm): 3 Effacement (%): 70 Station: -2 Membranes: Intact - Uterine Contractions Resting: Soft to palpation - Assessment - Baby A Baseline FHR: 125 Heart Rate - NICHD Category: Category I (Normal) NST: Reactive Physician Notification - Physician Notified Physician Notified Date: 05/19/25 Physician Notified Time: 00:57 Physician: Tray Smith New Order Received: Yes (Recheck cervix at one hour if no change, d/c home) - Notification Comment Comment: notified of pt 36 6/7, with complaints of ctx, NST reactive, cervical exam /-2 same as a few days prior, no ctx seen on the monitor at this time. Orders to recheck cervix at one hour, if no cervical change d/c home Maternal Triage Index - Maternal Triage Index Presenting for scheduled procedure w/no complaint: No - Stat/Priority 1 Stat Priority 1: No - Urgent/Priority 2 Urgent Priority 2: No - Prompt/Priority 3 Prompt Priority 3: Yes Criteria Met for Priority 3: Pt 36 6/7 with complaints of ctx 3-5 minutes apart Disposition - Disposition OB Disposition: Discharge to home Discharge Date: 05/19/25 Discharge Time: 02:00 I agree with the RN Medical Screening Exam: Yes Physician's MSE Comment: I have neither seen nor examined the patient. Case reviewed; plan agreed upon as documented in EMR&OBIX.: Yes Diagnosis: RELATED CONDITIONS, UNSPECIFIED, THIRD TRIMESTER
== END 2025-05-19 02:00 | disposition home or self-care (01) ==
LOC: FBPOP 00:32
PROVIDERS: ATTEND Obstetrics & Gynecology
DX: O26.893 Other specified pregnancy related conditions, third trimester (principal); Z3A.36 36 weeks gestation of pregnancy; Z91.030 Bee allergy status; Z91.018 Allergy to other foods; Z88.8 Allergy status to other drugs, medicaments and biological substances
CPT/HCPCS: 59025; G0463; 99213

== ENCOUNTER 2025-05-19 22:01 | Inpatient (IN) | payer OTHER ==
[2025-05-19 22:23] VITALS: RESP 16
[2025-05-19] MEDS ORDERED: TERBUTALINE 1 MG/ML VIAL SQ PRN (22:31)
[2025-05-19] MEDS ORDERED: CARBOPROST TROMETHAMINE 250 MCG/ML 1 ML AMP IM PRN (22:31)
[2025-05-19] MEDS ORDERED: METHYLERGONOVINE 0.2 MG/ML 1 ML AMP IM PRN (22:31)
[2025-05-19] MEDS ORDERED: TRANEXAMIC 1,000 MG/100ML-NACL 1,000 MG in EMPTY BAG 1 BAG IV PRN (22:31)
[2025-05-19] MEDS ORDERED: OXYTOCIN 10 UNIT/ML 1 ML VIAL IM PRN (22:31)
[2025-05-19] MEDS: LACTATED RINGERS 1,000 ML IV SCH (22:44)
[2025-05-19 23:06] LABS: Basophils # (A) 0.03 10*3/uL (0.00-0.10); Basophils % (A) 0.3 %; Eosinophils # (A) 0.09 10*3/uL (0.04-0.35); Eosinophils % (A) 1.0 %; HCT 32.5 % (37.2-46.3); HGB 11.8 g/dL (12.0-15.0); Lymphocytes # (A) 2.01 10*3/uL (0.90-5.00); Lymphocytes % (A) 21.8 %; MCH 32.9 pg (27.0-32.0); MCHC 36.3 g/dL (32.0-37.0); MCV 90.5 fL (80.0-97.0); Monocytes # (A) 0.57 10*3/uL (0.20-1.00); Monocytes % (A) 6.2 %; Neutrophils # (A) 6.47 10*3/uL (1.80-7.70); Neutrophils % (A) 70.4 %; Platelet Count 222 10*3/uL (140-440); RBC 3.59 10*6/uL (4.10-5.20); RDW 12.3 % (11.5-14.5); WBC 9.20 10*3/uL (4.50-10.00)
[2025-05-20] MEDS: OXYTOCIN 30 UNITS/500 ML NS 30 UNIT in SALINE 1 500ML.BAG IV SCH (05:15)
[2025-05-20] MEDS ORDERED: BUTORPHANOL 1 MG/ML 1 ML VIAL IV PRN (08:59)
--- NOTE | 2025-05-20 09:03 | P.HPOB ---
History of Present Illness H&P Date: 05/20/25 Chief Complaint: 37-0/7 weeks, spontaneous rupture of membranes, early labor The patient is a 25-year-old 1 para 0 admitted at 37-0/7 weeks as established by last menstrual period and confirmed by second trimester ultrasound. She is admitted with documented spontaneous rupture of membranes for clear fluid. Her has otherwise been uncomplicated though she is found to be rubella nonimmune. On labor delivery, all signs are reassuring with a category 1 heart rate tracing. Group B strep status is negative. Obstetrical history: 1 para 0 with current statistics listed in history of present illness. EDC of 06/10/2025 was established by last menstrual period and confirmed by second trimester ultrasound. Laboratory workup demonstrates a blood type of O+ with a negative antibody screen. Rubella status is nonimmune. The remainder of the laboratory workup was within normal limits. Early Glucola and second trimester Glucola were within normal limits. Group B strep status is negative. Gynecologic history: Unremarkable with no history of any infections to include STDs. Review of Systems Review of systems is confined to history of present illness. Past Medical History Additional Past Medical History / Comment(s): hx of palpitations, [employer]- [employer], HX of HTN pre History of Any Multi-Drug Resistant Organisms: None Reported Past Surgical History: Ear Surgery Additional Past Surgical History / Comment(s): tubes in ears as Past Anesthesia/Blood Transfusion Reactions: No Reported Reaction Past Psychological History: Anxiety, Depression Smoking Status: Never smoker Past Alcohol Use History: None Reported Past Drug Use History: None Reported Medications and Allergies Home Medications Medication Instructions Recorded Confirmed Type Pedi No.227/Ferrous Sulfate 10 mg PO DAILY 03/26/25 05/19/25 History [Flintstones Complete Chew Tab] Ferrous Gluconate [Iron] 10 mg PO DAILY 05/12/25 05/19/25 History Allergies Allergy/AdvReac Type Severity Reaction Status Date / Time bee venom protein (honey bee) Allergy Anaphylaxis Verified 05/19/25 22:03 /Hives coffee (Coffea arabica) Allergy Anaphylaxis Verified 05/19/25 22:03 /Nausea/Hiv es corn Allergy Nausea & Verified 05/19/25 22:03 Vomiting & Diarrhea ondansetron [From Zofran] Allergy Rash/Hives Verified 05/19/25 22:03 Yeast Allergy Rash/Hives Verified 05/19/25 22:03 Exam Vital Signs Temp Pulse Resp BP Pulse Ox 05/19/25 22:41 16 113/56 05/19/25 22:02 97.5 F L 118 H 16 115/61 98 Intake and Output 05/19/25 05/20/25 05/20/25 22:59 06:59 14:59 Other: # Voids 3 Weight 107.501 kg In general, this is a well-developed, well-nourished white female in no acute distress. Her heart has a regular rhythm and rate without murmur. Her lungs are clear to auscultation bilaterally in all jade. Her abdomen is gravid, nondistended, has normal active bowel sounds, soft, nontender, and without any palpable masses aside from the uterine fundus. Her extremities are without any cyanosis, clubbing, or edema and are nontender to palpation bilaterally. Digital cervical examination demonstrates her cervix to be 3 to 4 cm dilated, 50% effaced, the vertex and presentation at -2-3 station. A forebag is noted and ruptured artificially for clear fluid. Results Result Diagrams: 05/19/25 22:40 Abnormal Lab Results - Last 24 Hours (Table) 05/19/25 Range/Units 22:40 RBC 3.59 L (4.10-5.20) 10*6/uL Hgb 11.8 L (12.0-15.0) g/dL Hct 32.5 L (37.2-46.3) % MCH 32.9 H (27.0-32.0) pg Assessment and Plan (1) Spontaneous rupture of amniotic membranes Current Visit: Yes Status: Acute Code(s): ZLY0957 - SNOMED Code(s): 214974327 (2) Term Current Visit: Yes Status: Acute Code(s): Z34.90 - ENCNTR FOR SUPRVSN OF NORMAL , UNSP, UNSP TRIMESTER SNOMED Code(s): 30754972 Plan: The patient has been started on Pitocin augmentation and undergone rupture of a forebag. She will have close maternal and surveillance and expectant management will be practiced. She is a good candidate for either IV or epidural analgesia, which ever she may choose.
[2025-05-20] MEDS ORDERED: SODIUM CHLORIDE 0.9% 250 ML BAG ONE (10:31)
[2025-05-20] MEDS ORDERED: fentaNYL (PF) 50 MCG/ML 5 ML AMP ONE (10:31)
[2025-05-20] MEDS ORDERED: ROPIVACAINE 5 MG/ML 30 ML VIAL ONE (10:31)
[2025-05-20] MEDS: PENICILLIN G POTASSIUM 5,000,000 UNIT in SODIUM CHLORIDE 0.9% 100 ML IVPB STA (13:15)
[2025-05-20] MEDS: PENICILLIN G POTASSIUM 2,500,000 UNIT in SODIUM CHLORIDE 0.9% 100 ML IVPB SCH (17:15)
[2025-05-20] MEDS ORDERED: HYDROCORTISONE 2.5% RECTAL CREAM 30 GM TUBE RECTAL PRN (23:43)
[2025-05-20] MEDS ORDERED: SIMETHICONE 80 MG CHEWABLE PO PRN (23:43)
[2025-05-20] MEDS ORDERED: diphenhydrAMINE 50 MG/ML 1 ML VIAL IVP PRN ×2 (23:43)
[2025-05-20] MEDS ORDERED: LANOLIN CREAM 1 GM TUBE TOPICAL PRN (23:43)
[2025-05-20] MEDS ORDERED: diphenhydrAMINE 25 MG CAP PO PRN (23:43)
[2025-05-20] MEDS ORDERED: ZOLPIDEM 5 MG TAB PO PRN (23:43)
--- NOTE | 2025-05-20 23:48 | P.PROBDLV ---
Vaginal Delivery Note - . Vaginal Delivery Note: Date of service 05/20/2025 Findings: Viable male delivered at 2324, weight of 8 pounds 6.2 ounces 25-year-old 1 para 0 at 37-0/7 weeks that presented to labor and delivery on 05/19 with complaints of rupture of membranes around 1930 clear in nature. Patient was admitted to labor and delivery, minimal contractions were appreciated therefore Pitocin augmentation of labor was begun. A forebag was appreciated and amniotomy was performed for additional clear fluid. Patient made slow progress in labor eventually becoming uncomfortable and requesting epidural. Epidural was placed without difficulty by the anesthesia department. Patient made good progress toward complete dilation, once completely dilated patient began pushing and had a normal spontaneous vaginal delivery of a viable male infant at 2324, weight of 8 pounds 6.2 ounces, Apgars of 8 and 9 at 1 and 5 minutes respectively. Spontaneous cry was noted at . After 2-minute delay the umbilical cord was doubly clamped and cut, placenta was delivered spontaneously intact with three-vessel cord being noted. On inspection of patient's vaginal vault a right labial laceration was appreciated. This was repaired in the usual fashion with 3-0 Rapide. Hemostasis was appreciated after closure. Continued amount of bleeding was appreciated on bimanual exam multiple clots were removed from the uterine cavity. Uterus firmed and bleeding slowed. Bladder was drained for approximately 100 cc of clear yellow urine via red rubber catheter All counts were noted to be correct x 2 at the end of the delivery. Patient and infant tolerated delivery well and are resting comfortably
[2025-05-21] MEDS: BENZOCAINE/MENTHOL SPRAY 1 GM/SPRAY AEROSOL TOPICAL PRN (00:05)
[2025-05-21] MEDS: LIDOCAINE 0.5% (PF) 5 MG/ML (50 ML SDV) SQ PRN (00:06)
[2025-05-21] MEDS: ACETAMINOPHEN TAB 500 MG TAB PO SCH (01:49)
[2025-05-21] MEDS: IBUPROFEN 800 MG TAB PO SCH (04:16)
--- NOTE | 2025-05-21 07:56 | P.PNOBGVD ---
Subjective - Subjective Principal diagnosis: s/p Interval history: The patient is doing well this morning and had no acute events overnight. She has no complaints this morning. She reports minimal lochia, passing flatus, voiding without difficulty, ambulating, and eating/drinking without nausea or vomiting. She is her without difficulty. She denies chest pain, shortness of breathing, fevers, or chills overnight. She denies pain or swelling in the legs. Patient reports: Reports appetite normal, Reports voiding normally, Reports pain well controlled, Reports ambulating normally : doing well Objective - Latest Vital Signs Latest vital signs: Vital Signs Temp Pulse Resp BP Pulse Ox 05/21/25 05:00 98.9 F 81 16 104/62 97 05/21/25 01:55 83 16 116/66 05/21/25 01:40 103 H 16 113/68 05/21/25 01:25 97.0 F L 98 16 106/58 05/21/25 01:10 101 H 16 105/56 05/21/25 00:55 93 16 104/58 05/21/25 00:40 102 H 16 108/59 05/21/25 00:25 89 16 108/55 05/21/25 00:10 99 16 107/56 05/20/25 23:55 98.7 F 89 16 105/55 Intake and Output 05/20/25 05/21/25 05/21/25 22:59 06:59 14:59 Intake Total 37.633 Output Total 100 828 Balance -100 -790.367 Intake: Intake, IV Titration 37.633 Amount Oxytocin 30 Units/500 ml 37.633 Ns 30 unit In Saline 1 500ml.bag @ Per Protocol IV .Q0M [facility] Rx#:[id number] Output: Urine 100 100 Output, Estimated Blood 200 Loss Amount Output, Quantitative 528 Blood Loss Other: # Voids 1 - Exam Extremities: Present: normal Abdomen: Present: normal appearance, soft Uterus: Present: normal, firm Assessment and Plan Assessment: 25 year old PPD#1 s/p after SROM Plan: 1. . Patient meeting all milestones appropriately. 2. Viable male infant. Doing well at bedside. Will need circumcision. Dispo: Anticipate discharge home tomorrow
[2025-05-21] MEDS: SENNOSIDES-DOCUSATE SODIUM 1 EACH TAB PO SCH (08:21)
[2025-05-21] MEDS: MEASLES-MUMPS-RUBELLA VACC/PF 0.5 ML VIAL SQ ONE (18:20)
[2025-05-22 08:31] VITALS: BP 116/77; PULSE 76; TEMP 97.9
--- NOTE | 2025-05-22 12:41 | P.DS ---
Providers Date of admission: 05/19/25 22:24 Expected date of discharge: 05/22/25 Attending physician: Mitra Grace MD Primary care physician: Stated None Hospital Course: Ms. Ko is a 25 year old now PPD#1 s/p without complications. The patient is doing well this morning and had no acute events overnight. She has no complaints this morning. She reports minimal lochia, passing flatus, voiding without difficulty, ambulating, and eating/drinking without nausea or vomiting. doing well at bedside, s/p circumcision. She denies chest pain, shortness of breathing, fevers, or chills overnight. She denies pain or swelling in the legs. restrictions are reviewed with the patient including pelvic rest for 6 weeks. The patient is encouraged to call the office if she experiences any heavy bleeding, foul-smelling discharge, breast complaints, or any if she has any other concerns. She will follow up in the office with in 6 weeks for exam. All questions are answered. Patient Condition at Discharge: Good Plan - Discharge Summary New Discharge Prescriptions: No Action Pedi Mv No.227/Ferrous Sulfate [Flintstones Complete Chew Tab] 10 mg PO DAILY Ferrous Gluconate [Iron] 10 mg PO DAILY Discharge Medication List Pedi Mv No.227/Ferrous Sulfate [Flintstones Complete Chew Tab] 10 mg PO DAILY [History] Ferrous Gluconate [Iron] 10 mg PO DAILY 05/12/25 [History] Follow up Appointment(s)/Referral(s): Mitra Grace MD [STAFF PHYSICIAN] - 07/03/25 11:30 am Activity/Diet/Wound Care/Special Instructions: Instructions 1. Do not begin any exercise program for 3 weeks. 2. Do not resume sexual relations for 6 weeks or longer if uncomfortable. 3. You may take tub baths or showers at any time. 4. You may use tampons if desired after 6 weeks. 5. Keep any areas repaired with stitches clean and dry. 6. If you are not nursing, wear a good fitting, supportive bra during the day and limit fluid intake for at least 1 week to prevent breast engorgement. 7. Call the office, , within the next week to make appointment for your 6 week checkup if it has not already been made. 8. Report any of the following occurrences to the doctor promptly: a. Heavy, excessive bleeding b. Chills, fever c. Burning or frequency of urination d. Pain or redness and breasts if nursing e. Increasing pain or swelling of vulva (stitches). In addition to the above instructions, the following additional should be followed: 1. No heavy lifting or straining (exercising) until after 6 week checkup. 2. Keep abdominal incision clean and dry: You may wear a dressing if more comfortable. 3. Make office appointment for 2 weeks after delivery date. Discharge Disposition: HOME SELF-CARE
== END 2025-05-22 15:12 | disposition home or self-care (01) | DRG 560 ==
LOC: FBPOP 22:01 → 4FBP 22:24
PROVIDERS: ADMIT Obstetrics & Gynecology; ATTEND Obstetrics & Gynecology
PROC: 10E0XZZ Delivery of Products of Conception, External Approach (ICD-10-PCS; principal; 2025-05-20)
PROC: 0HQ9XZZ Repair Perineum Skin, External Approach (ICD-10-PCS; 2025-05-20)
DX: O70.0 First degree perineal laceration during delivery (principal); O99.344 Other mental disorders complicating childbirth; F41.9 Anxiety disorder, unspecified; F32.A Depression, unspecified; Z3A.37 37 weeks gestation of pregnancy; Z37.0 Single live birth
CPT/HCPCS: 59025; 84112; 85025; 86850; 86900; 86901; 90707; 99213